=== PATIENT | male | born 1985 | race Caucasian/White ===

== ENCOUNTER 2017-01-24 07:09 | Emergency (ER) | payer BC ==
[2017-01-24] MEDS ORDERED: NORMAL SALINE 1,000 ML IV ONE (07:41)
--- NOTE | 2017-01-24 07:46 | ERNOTE ---
<Patricio Damian - Last Filed: 01/24/17 08:11> ER Male HPI Stated Complaint: RIGHT SIDE PAIN ER Male: other - Flank pain Time Seen by Provider: 01/24/17 07:27 Source: patient Exam Limitations: no limitations Immunizations: IMMUNIZATION HX Immunizations Up to Date Yes History of Influenza Vaccine No Hx Pneumococcal Vaccination No Allergies/Adverse Reactions: Allergies Sulfa (Sulfonamide Antibiotics) Allergy (Intermediate, Verified 01/24/17 07:24) Hives Home Medications: HOME MEDICATIONS Ciprofloxacin HCl [Cipro] 500 mg PO BID #20 tab 01/24/17 [Last Taken Unknown] Ondansetron [Zofran Odt] 4 mg PO Q4H PRN #10 tab 01/24/17 [Last Taken Unknown] - History of Present Illness Narrative: Pt had onset of flank pain yesterday. Last night he felt hot but did not take his temp. This morning he felt nauseous but felt better after urinating. Timing: Present: getting worse Quality: Present: dullness Onset Location: Present: right flank Radiation: Present: none Activities at Onset: Present: none Prior Abdominal Problems: Present: other - chronic diarrhea Sexual [place] History: Present: single partner Modifying Factors - (Improves): Present: analgesics - ibuprofen helped a little yesterday Associated Symptoms: Present: nausea, urinary frequency. Absent: vomiting, dysuria Review of Systems - Review of Systems Constitutional: Present: fever - ?, fatigue. Absent: recent illness, chills EYE: Present: no symptoms reported ENT: Absent: nose congestion, nasal drainage Respiratory: Absent: shortness of breath, cough Cardiology: Absent: chest pain Gastrointestinal/Abdominal: Present: nausea, diarrhea. Absent: vomiting, constipation Genitourinary: Present: See HPI, frequency. Absent: pain, hematuria Musculoskeletal: Absent: muscle pain, muscle stiffness Skin: Absent: rash Neurological: Present: no symptoms reported Endocrine: Present: intolerance to heat. Absent: excessive sweating, increased thirst Hematologic/Lymphatic: Absent: easy bruising Psych: Present: no symptoms reported - Patient's Past Medical History Patient History - Medical: Kidney stone, Other - ITP Patient History - Cardiac/Respiratory: No pertinent hx Patient History - Cancer: No Hx of Cancer Patient History - Surgical Procedures: Colon Resection Patient History - Other: None - Social History Living Situations: home Psych History: No pertinent hx Smoking Status: Never smoker Have you smoked in the past 12 months: No Do you dip or chew tobacco: No - Immunizations Immunizations Up to Date: Yes Hx Pneumococcal Vaccination: No History of Influenza Vaccine: No Physical Exam - Physical Exam General Appearance: Present: wd/wn, alert, mild distress Head Exam: Present: normal inspection, no evidence of injury Ears, Nose, Throat: Present: normal ENT inspection Neck: Present: normal inspection, nontender, supple Respiratory: Present: no respiratory distress, normal breath sounds, lungs clear Cardiovascular/Chest: Present: regular rate, rhythm, no murmur, normal peripheral pulses Gastrointestinal/Abdominal: Present: soft, tenderness - Diffuse, more upper than lower, abnormal bowel sounds - slightly hyperactive. Absent: distended, guarding, rebound Back Exam: Present: no vertebral tenderness, CVA tenderness (R) Extremity Exam: Present: normal inspection, normal range of motion, no edema Neurological Exam: Present: alert, oriented, normal mood/affect, no motor/ sensory deficits Skin Exam: Present: normal color, warm/dry Lymphatic Exam: Present: no adenopathy ED Progress - Vital Signs Vital Signs: Vital Signs 01/24/17 07:14 Temperature 38.0 C H Pulse Rate 121 H Respiratory 18 Rate Blood Pressure 144/83 O2 Sat by Pulse 97 Oximetry - Progress/Reassessment Chief Complaint: Genitourinary Problem - Transfer of Care Physician Sign Out: Patricio Damian Receiving Physician: Jeannie Beltre Pending Results: Labs, X-ray results Expected Disposition: Discharge Departure Clinical Impression: Pyelonephritis, acute - Departure Disposition: Home self-care Condition: Good Instructions: Pyelonephritis, Adult, [id number] Additional Instructions: call the urology office for follow up Referrals: Hai Kaiser MD [Associate] - Prescriptions: Ciprofloxacin HCl [Cipro] 500 mg PO BID #20 tab Ondansetron [Zofran Odt] 4 mg PO Q4H PRN #10 tab PRN Reason: Nausea And Vomiting <Jeannie Beltre - Last Filed: 01/24/17 08:59> ER Male HPI Immunizations: IMMUNIZATION HX Immunizations Up to Date Yes History of Influenza Vaccine No Hx Pneumococcal Vaccination No Physical Exam - Physical Exam General Appearance: Present: wd/wn, alert, no apparent distress Respiratory: Present: no respiratory distress Gastrointestinal/Abdominal: Present: nondistended, soft, tenderness - minimal throughout (patient states chronic) Back Exam: Present: CVA tenderness (R). Absent: CVA tenderness (L) Neurological Exam: Present: alert, oriented, normal mood/affect Skin Exam: Present: normal color, warm/dry ED Progress - Results and Orders Patient's Lab Results:: I have reviewed the patient's lab results. - Vital Signs Patient's Vital Signs:: I have reviewed the patient's vital signs. Vital Signs: Vital Signs 01/24/17 01/24/17 07:14 08:42 Temperature 38.0 C H 38 C H Pulse Rate 121 H Respiratory 18 Rate Blood Pressure 144/83 O2 Sat by Pulse 97 Oximetry - X-Ray X-Ray #1 X-Ray: abdomen - no acute changes Interpretation: Reviewed by me - Progress/Reassessment Progress Note-Subjective: 01/24/17 08:53 patient comfortable, no nausea discussed results and need for follow up with patient, patient doesn't have PCP, will have follow up with urology
[2017-01-24] MEDS ORDERED: ONDANSETRON 4 MG TAB.RAPDIS ONE (07:51)
[2017-01-24] MEDS ORDERED: ONDANSETRON 4 MG TAB.RAPDIS PO ONE (07:51)
[2017-01-24 08:02] LABS: Urine Bilirubin Negative (NEGATIVE); Urine Blood Negative /ul (NEGATIVE); Urine Ketone 50 mg/dL (NEGATIVE); Urine Nitrite Negative (NEGATIVE); Urine Protein Negative (NEGATIVE); Urine Urobilinogen Normal (NORMAL)
[2017-01-24 08:02] LABS: Hematocrit 46.7 % (42.0-52.0); Hemoglobin 16.5 gm/dL (13.5-18.0); Mean Cell Volume 82.5 fl (78-100); Mean Corpuscular Hemoglobin 29.2 pg (27-31); Mean Corpuscular Hgb Conc 35.3 g/dl (32-36); Mean Platelet Volume 9.8 fl (6.0-9.5); Neutrophil # 14.1 K/mm3 (1.3-6.0); Neutrophil % 82.2 % (42-75.0); Platelet Count 167 K/mm3 (150-450); Red Blood Count 5.66 M/mm3 (4.7-6.0); Red Cell Distribution Width 12.3 % (11.5-14.0); White Blood Count 17.1 K/mm3 (4.0-10.5)
[2017-01-24 08:07] LABS: Urine Appearance Slightly Cloudy; Urine Bacteria 2+; Urine Color Yellow; Urine RBC None Seen /hpf (0-5)
[2017-01-24 08:16] LABS: Albumin * 4.3 gm/dl (3.4-5.0); Anion Gap 12.7 mmol/L (6.8-13.8); BUN/Creatinine Ratio 11.9 (9.0-21.6); Ca. Corrected For Albumin 8.8 mg/dL (8.4-10.2); Calcium * 9.4 mg/dL (7.9-10.9); Carbon Dioxide 27.6 mmol/L (24-32.6); Potassium 4.3 mmol/L (3.4-4.6); Total Protein 6.9 gm/dL (6.2-8.2)
[2017-01-24] MEDS ORDERED: CIPROFLOXACIN HCL 250 MG TABLET PO ONE (08:54)
[2017-01-24] MEDS ORDERED: ACETAMINOPHEN 325 MG TABLET PO ONE (08:55)
[2017-01-24] MEDS ORDERED: ACETAMINOPHEN 325 MG TABLET ONE (08:57)
[2017-01-24] MEDS ORDERED: CIPROFLOXACIN HCL 250 MG TABLET ONE (08:57)
[2017-01-24 09:31] VITALS: BP 134/78
== END 2017-01-24 09:30 | disposition home or self-care (01) ==
LOC: ER 07:09
DX: N10 Acute pyelonephritis (principal); Z87.442 Personal history of urinary calculi